=== PATIENT | male | born 1955 | race Caucasian/White ===

== ENCOUNTER → 2019-03-10 | Outpatient (CLI) | payer BC, MEDICARE ==
[~2019-03-10] MED LIST: ACYC800T PO; ATOR40TA PO; BENA1TAB PO; CLOP75TA PO; CONTRAST GIVEN. MC PRN; DULO30CA2 PO; FLUT9.9S NS; INSU100C SQ; INSU100I13 SQ; IOHEXOL 240 MG/ML 50ML VIAL. IV ONE; IOHEXOL 300 MG/ML 100ML VIAL. IV ONE; METO25TA4 PO; PANT40TA5 PO; RANI50VI3 IJ; TAMS0.4C97 PO; ZOLP10TA PO
[2019-03-10 09:38] LABS: CREATININE 1.2 mg/dL (0.7-1.3); GFR 60.8
--- NOTE | 2019-03-10 11:04 | RAD ---
EXAM: CT ABDOMEN/PELVIS WITH CONTRAST. HISTORY: Left lower quadrant pain. TECHNIQUE: Computed tomography of the abdomen and pelvis was performed after the intravenous administration of 75 mL Omnipaque 300. COMPARISON: None. FINDINGS: Lung windows through the visualized portions of the bases reveal a small calcified granuloma in the right lower lobe and mild basilar atelectasis. There are changes of coronary artery bypass grafting. Bone windows reveal no suspicious lesions. Bilateral total hip arthroplasties are noted. A cyst at the right renal lower pole measures 1.3 cm. There are no suspicious renal lesions. The liver, gallbladder, pancreas, and adrenal glands are unremarkable. There is a calcified granuloma in the spleen. The ureterovesical junctions are obscured by streak artifact. There is no nephroureterolithiasis elsewhere. There is no hydroureter. The bladder is decompressed but demonstrates diffuse wall thickening. The appendix is not inflamed. There is no evidence of diverticulitis, appendicitis or other inflammatory process. IMPRESSION: 1. Bladder wall thickening suggests chronic outlet obstruction or inflammation. Correlate with urinalysis. 2. No cause for acute pain is identified. *One or more of the following individualized dose reduction techniques were utilized for this examination: 1. Automated exposure control. 2. Adjustment of the mA and/or kV according to patient size. 3. Use of iterative reconstruction technique. Electronically signed by: Leonidas Wong MD (03/10/2019 11:01 AM) [facility]
== END | disposition home or self-care (01) ==
LOC: CT 08:58
PROVIDERS: ATTEND Family Medicine
DX: J98.11 Atelectasis (principal); J84.10 Pulmonary fibrosis, unspecified; N32.89 Other specified disorders of bladder; Z95.1 Presence of aortocoronary bypass graft
CPT/HCPCS: 36415; 74177; 82565; Q9967